=== PATIENT | female | born 1950 | race Caucasian/White ===

== ENCOUNTER 2017-08-05 17:01 | Observation (INO) | payer MEDICARE, MEDICAID ==
[2017-08-05] MEDS ORDERED: Ondansetron HCl/PF 4 MG/2 ML Vial ONE ×2 (17:23→18:10)
[2017-08-05 17:36] LABS: #Eosinphils 0.2 thou/uL (0.0-0.7); #Lymphocytes 2.2 thou/uL (1.20-3.40); #Monocytes 0.6 thou/uL (0.11-0.59); #Neutrophils 6.8 thou/uL (1.40-6.50); %Basophils 0.4 % (0.0-1.0); %Eosinophils 2.4 % (0.0-10.0); Hematocrit 36.1 % (36.0-47.0); Mean Platelet Volume 6.1 fL (7.4-10.4); Red Blood Cell (RBC) Count 3.69 mill/uL (4.20-5.40); White Blood Cell (WBC) Count 9.8 thou/uL (4.8-10.8)
[2017-08-05 17:41] LABS: Prothrombin Time 12.9 SEC (12.0-14.7)
[2017-08-05 17:50] LABS: Modified Allen's Test POSITIVE; Oxyhemoglobin 92.8 % (94.0-97.0); Sodium 138 mmol/L (135-148); Vent NO
[2017-08-05 17:51] LABS: Mode NC 2 LPM
[2017-08-05 17:52] LABS: Lactic Acid - Sepsis 3.2 mmol/L (0.5-2.2)
[2017-08-05 17:59] LABS: ALT (SGPT) 55 U/L (8-55); AST (SGOT) 77 U/L (5-34); Alkaline Phosphatase 78 U/L (40-150); Anion Gap 14 mmol/L (10-20); BUN (Urea Nitrogen) 12 mg/dL (9.8-20.1); Bilirubin, Total 0.2 mg/dL (0.2-1.2); CK (CPK) 166 U/L (29-168); Calc. Creatinine Clearance 0 mL/min (70-130); Calcium 11.5 mg/dL (7.8-10.44); Carbon Dioxide 22 mmol/L (23-31); Chloride 104 mmol/L (98-107); Estimated GFR-MDRD 61; Globulin 2.8 g/dL (2.4-3.5); Protein, Total 7.1 g/dL (6.0-8.3)
[2017-08-05 18:00] LABS: Troponin I Less than 0.010 ng/mL (< 0.028)
[2017-08-05] MEDS ORDERED: Midazolam HCl 2 mg/2 ml Vial ONE (18:29)
[2017-08-05] MEDS ORDERED: Lidocaine 1% PF 5 ML VIAL ONE (18:29)
[2017-08-05] MEDS ORDERED: Lidocaine Viscous Sol 2% 15 ml UD Cup ONE (18:29)
[2017-08-05] MEDS ORDERED: Benzocaine 20% Spray 60 ML CAN ONE (18:49)
[2017-08-05] MEDS ORDERED: Senokot 8.6 MG TAB PO PRN (18:54)
[2017-08-05] MEDS ORDERED: Bisacodyl 5 MG TAB PO PRN (18:54)
[2017-08-05] MEDS ORDERED: Ondansetron HCl/PF 4 MG/2 ML Vial IVP PRN (18:54)
[2017-08-05] MEDS ORDERED: Dextrose 50% Abboject 50 ML SYRINGE SLOW IVP PRN (18:56)
[2017-08-05] MEDS ORDERED: Dextrose 5% in Water 1,000 ML IV PRN (18:56)
[2017-08-05] MEDS ORDERED: methylPREDNISolone Sod Succ/PF 125 MG/2 ML VIAL IVP SCH (19:19)
--- NOTE | 2017-08-05 19:43 | RAD ---
CHEST ONE VIEW 08/05/17 HISTORY: Foreign body in airway. Dyspnea. COMPARISON: 05/31/17. FINDINGS: Cardiac silhouette is magnified and upper limits of normal in size. Pulmonary vasculature is upper li mits of normal. Patchy bibasilar infiltrates are now present. There is slight rightward rotation of t he patient. No lobar consolidation or pneumothorax are apparent. No radiopaque foreign bodies are evident over the airway. Postoperative changes of the cervical spine and lumbar spine are partially visualized. IMPRESSION: Bibasilar atelectasis. No active cardiopulmonary abnormalities are otherwise demonstrated. POS: [facility]
[2017-08-05 19:54] LABS: Lactic Acid - Sepsis 3.3 mmol/L (0.5-2.2)
[2017-08-05 20:51] VITALS: BMI 36.1
[2017-08-05] MEDS: Nicotine 21 MG PATCH TD SCH (22:22)
[2017-08-05] MEDS: Acetaminophen 325 MG TAB PO PRN (22:23)
--- NOTE | 2017-08-06 00:26 | OP ---
DATE OF PROCEDURE: 08/05/2017 PROCEDURE: Bronchoscopy. PREOPERATIVE DIAGNOSIS: Possible aspiration of food contents. POSTOPERATIVE DIAGNOSIS: Clear airways. No evident indication of aspiration of food contents. ANESTHESIA: 1% lidocaine without epinephrine to vocal cords, Hurricaine spray to the back of the thr oat, viscous lidocaine to the nares. She also received conscious sedation with total 2 mg of Versed IV. Informed consent was obtained from the patient. She was explained the risks of the procedure includi ng, but not limited to bleeding, infection, accidental lung puncture. She also understood that she w as undergoing conscious sedation during this procedure. DESCRIPTION OF PROCEDURE: The procedure was performed in the emergency room under cardiopulmonary mo nitoring. Nurses at the bedside. The patient was on a tidal CO2 monitor and was receiving high-flow oxygen via nasal cannula. The Pentax bronchoscope was placed in the patient's mouth through a bite block. The vocal cords were identified and adducted normally. The scope was used to survey the trac hea, right mainstem bronchus, right upper lobe, right middle lobe, right lower lobe, left mainstem br onchus, left upper lobe, and left lower lobe. There was no evidence of any food aspiration. There w ere some thick mucoid secretions present in both lower lobes. These were aspirated after being lavag ed with normal saline. She tolerated the procedure well.
--- NOTE | 2017-08-06 01:06 | CON ---
DATE OF CONSULTATION: 08/05/2017 CONSULTING PHYSICIAN: Dr. Simons from the [facility]. REASON FOR CONSULTATION: Possible aspiration of food contents. HISTORY OF PRESENT ILLNESS: This is a 67-year-old female who was eating brisket earlier today. She choked, she had a Heimlich maneuver performed without successful dislodgement of the foreign body. S he presented to the ER in respiratory distress. Forceps were used to remove a large piece of brisket measuring about 4 cm x 3 cm from the posterior pharynx. I was asked to see the patient to rule out aspiration in the trachea. At the time I arrived, she was awake, alert, and able to give history. D oes not appear to be in any respiratory distress but was using supplemental oxygen. PAST MEDICAL HISTORY: Hypertension, diabetes mellitus type 2, anxiety, gastroesophageal reflux, hype rlipidemia. PAST SURGICAL HISTORY: Back surgery, left knee surgery, cholecystectomy, hysterectomy, and thyroidec raciel. ALLERGIES: None. MEDICATIONS PRIOR TO ADMISSION: Tramadol, metformin, simvastatin, Protonix, Theragran, melatonin, li sinopril, Levemir insulin, gabapentin, vitamin D2, duloxetine, vitamin B12, aspirin, amitriptyline. SOCIAL HISTORY: The patient smokes some formerly heavier in the past. Does not consume alcohol. FAMILY MEDICAL HISTORY: Unremarkable. REVIEW OF SYSTEMS: Otherwise, negative. PHYSICAL EXAMINATION: VITAL SIGNS: O2 saturation is 96% on 2 liters, pulse 80, blood pressure 140/70. GENERAL: She is awake, alert, and conversant. HEENT: Pupils react. Sclerae are anicteric. Oropharynx is clear. NECK: Without adenopathy or JVD. LUNGS: She has some coarse expiratory wheezing. CARDIAC: S1, S2 regular. ABDOMEN: Soft, nontender. EXTREMITIES: No clubbing, cyanosis, or edema. LABORATORY DATA: Sodium 136, potassium 4, chloride 104, CO2 22, BUN 12, creatinine 0.9, glucose 240. Lactate was 3.2. White blood cell count 9.8, hematocrit 36.1, platelet count 322. ABG: Initially , pH 7.29, pCO2 of 48, pO2 of 76. Chest x-ray showed some atelectasis. ASSESSMENT: 1. Possible aspiration - bronchoscopy has been performed and this has been ruled out. 2. Hypoxemia. 3. Probably underlying chronic obstructive pulmonary disease. PLAN: She probably should be observed for the next 12 hours until her hypoxemia resolves. I will be happy to follow with you.
--- NOTE | 2017-08-06 01:43 | HP ---
CHIEF COMPLAINT: Choking with shortness of breath. HISTORY OF PRESENT ILLNESS: This is a 67-year-old female with a past medical history significant for hypertension, hyperlipidemia as well as diabetes, who presents to the hospital after choking on a pi dee dee of steak earlier today. The patient was enjoying the meal when she suddenly began choked on a pi dee dee of steak. Apparently, her airways were obstructive for approximately 15 minutes. The steak was eventually removed with the Sandeep forceps. During that time, she was found to be cyanotic with oxyg en saturations around 65%-66% on room air. After removal with the forceps, the patient's oxygen satu rations improved significantly to the mid 90s while on O2 as well. She became more alert and is resp onding to commands, and engaging in conversation. Due to this steak, ER was still concerned that the re was possibly some particles left over, so Pulmonology was consulted for possible bronchoscopy. Th e patient currently denies any shortness of breath, cough, fevers, chills, chest pain, or neck swelli ng. PAST MEDICAL HISTORY: See HPI. SOCIAL HISTORY: Smokes a few cigarettes a day. Denies any recreational drug use or alcoholic use, s tates she is FULL CODE. She states that her [id number] was the surrogate decision maker. FAMILY HISTORY: Positive for diabetes. PAST SURGICAL HISTORY: Includes multiple back surgeries, cholecystectomy, hysterectomy as well as th yroidectomy. REVIEW OF SYSTEMS: A 14-point review of systems were reviewed and were negative other than what was mentioned in the HPI. HOME MEDICATIONS: Still trying to be retrieved at this time. PHYSICAL EXAMINATION: VITAL SIGNS: Blood pressure was 117/68, pulse was 83, respiratory rate was 20, temperature was 98, a nd patient was satting 95% oxygen on 2 liters nasal cannula. GENERAL: Patient was in no apparent distress, resting comfortably in the bed, alert, awake, and orie nted x3. HEENT: Head: Normocephalic, atraumatic. Eyes: Pupils are round and reactive to light. Extraocula r muscles were intact. Conjunctivae was pink. Sclerae was nonicteric. Mouth: Oral mucosa pink and moist. No erythema was noted. Patient's lips were no longer cyanotic from what was on admission pr eviously. NECK: Soft and supple. No JVD, carotid bruits, or lymphadenopathy. CARDIOVASCULAR: Regular rate and rhythm. S1, S2 sounds were heard. RESPIRATORY: Clear lungs bilaterally. No added sounds. ABDOMEN: Bowel sounds, soft, nontender, nondistended. EXTREMITIES: Pulses were 2+ both dorsalis and radial pulse. No pitting edema could be appreciated. NEUROLOGIC: Cranial nerves II through XII are grossly intact. Patient is moving all 4 extremities v miguel well. LABORATORY DATA: White blood cell count was 9.8, hemoglobin of 12.2, hematocrit was 36.1, platelet c ount was 322. Sodium was 136, potassium 4.0, chloride was 104, bicarbonate was 22, BUN was 12, creat inine was 0.92, glucose was 240. Lactic acid was 3.2. Blood gas showed a pH of 7.29, pCO2 of 48, pO 2 of 76.7. Chest x-ray showed atelectasis otherwise, no other findings could be appreciated. ASSESSMENT AND PLAN: 1. Acute hypoxic and hypercapnic respiratory failure secondary to choking on a food particle. 2. Lactic acidosis secondary to likely hypercapnic respiratory failure. 3. Hypertension. 4. Hyperlipidemia. 5. Diabetes. PLAN: The patient is currently hemodynamically stable. As stated up above, Pulmonology is to see th e patient today. The patient may likely undergo a bronchoscopy pending evaluation of the patient at this time. She is doing significantly better. Satting well on 2 liters nasal cannula. We will cont inue to monitor the patient closely for any residual effects. We will recheck lactic acid, but I do anticipate this improving as the patient is satting significantly better than when she initially came in. We will resume home medication at the medicine reconciliation. Sliding scale insulin protocol. Diabetes appears to be uncontrolled at this time. We will also career guidance counselor the patient on tobacco cess ation. We will monitor accordingly.
[2017-08-06] MEDS: Acetaminophen 325 MG TAB PO PRN ×3 (02:46→14:42)
[2017-08-06 06:13] LABS: #Lymphocytes 1.2 thou/uL (1.20-3.40); #Monocytes 0.2 thou/uL (0.11-0.59); #Neutrophils 8.3 thou/uL (1.40-6.50); %Basophils 0.1 % (0.0-1.0); %Eosinophils 0.3 % (0.0-10.0); %Lymphocytes 12.7 % (21.0-51.0); %Monocytes 1.7 % (0.0-10.0); Hematocrit 32.7 % (36.0-47.0); Mean Platelet Volume 6.8 fL (7.4-10.4); Red Blood Cell (RBC) Count 3.32 mill/uL (4.20-5.40); White Blood Cell (WBC) Count 9.7 thou/uL (4.8-10.8)
[2017-08-06 06:34] LABS: Anion Gap 12 mmol/L (10-20); BUN (Urea Nitrogen) 12 mg/dL (9.8-20.1); Calc. Creatinine Clearance 74 mL/min (70-130); Calcium 10.5 mg/dL (7.8-10.44); Carbon Dioxide 22 mmol/L (23-31); Chloride 104 mmol/L (98-107); Estimated GFR-MDRD 63
[2017-08-06] MEDS: Insulin Regular 300 UNITS/3 ML VIAL SC PRN ×3 (06:47→16:38)
[2017-08-06] MEDS: Enoxaparin Sodium 40 MG/0.4 ML SYRINGE SC SCH (08:18)
[2017-08-06] MEDS ORDERED: FLU VACC TS2017-18 (>65YR) 0.5 ML SYRINGE IM ONE (09:00)
--- NOTE | 2017-08-06 12:39 | PDOC.PN ---
- Subjective Encounter Start Date: 08/06/17 Encounter Start Time: 09:00 Pt sen for lactic acidosis. says she feels better. No nausea, vomiting or diarrhea. - Objective MAR Reviewed: Yes Vital Signs & Weight: Vital Signs (12 hours) Temp Pulse Resp BP Pulse Ox 08/06/17 11:20 98.4 F 92 18 115/77 97 08/06/17 10:37 82 16 96 08/06/17 08:21 98.5 F 85 16 08/06/17 07:46 98.5 F 85 16 136/68 98 08/06/17 06:47 82 16 94 L 08/06/17 05:30 98.3 F 87 18 170/81 H 95 Weight Weight 167 lb 4.8 oz I&O: 08/05/17 08/06/17 08/07/17 06:59 06:59 06:59 Intake Total 540 Output Total 1400 Balance -860 Result Diagrams: 08/06/17 05:27 08/06/17 05:27 Additional Labs: Accuchecks 08/06/17 08/05/17 10:46 22:04 POC Glucose 323 H 210 H EKG Reviewed by me: Yes (Tele: NSR) Phys Exam - Physical Examination Constitutional: NAD HEENT: PERRLA, moist MMs, sclera anicteric, oral pharynx no lesions Neck: no nodes, no JVD, supple, full ROM Respiratory: no wheezing, no rales, no rhonchi, clear to auscultation bilateral Cardiovascular: RRR, no rub Gastrointestinal: soft, non-tender, no distention, positive bowel sounds Musculoskeletal: pulses present Neurological: moves all 4 limbs Lymphatic: no nodes Psychiatric: normal affect, A&O x 3 Skin: no rash, normal turgor, cap refill <2 seconds Dx/Plan (1) Lactic acidosis Code(s): E87.2 - ACIDOSIS Status: Acute (2) Choking episode Code(s): R09.89 - OTH SYMPTOMS AND SIGNS INVOLVING THE CIRC AND RESP SYSTEMS Status: Acute (3) HTN (hypertension) Code(s): I10 - ESSENTIAL (PRIMARY) HYPERTENSION Status: Chronic (4) Dyslipidemia Code(s): E78.5 - HYPERLIPIDEMIA, UNSPECIFIED Status: Chronic (5) DM2 (diabetes mellitus, type 2) Status: Chronic - Plan plan discussed w/ family * . Etiology of lactic acidosis unclear. ? due to hypoxia during aspiration, ? due to metformin use, ? other causes. Provide IV hydration, hold metformin, repeat lactic acid level. Discussed with pt and daughter, updated them. Monitor vital signs, titrate antihypertensives as needed. Continue statin. Review of Systems - Review of Systems Constitutional: Other. negative: Fever, Chills, Sweats, Weakness, Malaise Respiratory: negative: Cough, Dry, Shortness of Breath, Hemoptysis, SOB with Excertion, Pleuritic Pain, Sputum, Wheezing Cardiovascular: negative: Chest Pain, Palpitations, Orthopnea, Paroxysmal Noc. Dyspnea, Edema, Light Headedness Gastrointestinal: negative: Nausea, Vomiting, Abdominal Pain, Diarrhea, Constipation, Melena, Hematochezia Genitourinary: negative: Dysuria, Frequency, Incontinence, Hematuria, Retention - Medications/Allergies Allergies/Adverse Reactions: Allergies Allergy/AdvReac Type Severity Reaction Status Date / Time No Allergy Information Allergy Verified 06/01/17 00:14 Available Medications: Current Medications Acetaminophen (Tylenol) 650 mg PO Q4H PRN PRN Reason: Headache/Fever or Pain Last Admin: 08/06/17 08:18 Dose: 650 mg Albuterol/Ipratropium (Duoneb) 3 ml NEB [id number] [facility] Last Admin: 08/06/17 10:37 Dose: 3 ml Amitriptyline HCl (Elavil) 150 mg PO HS [facility]I Aspirin (Ecotrin) 81 mg PO DAILY [facility] Atorvastatin Calcium (Lipitor) 20 mg PO HS KARI Bisacodyl (Dulcolax) 10 mg PO DAILYPRN PRN PRN Reason: Constipation Dextrose/Water (Dextrose 50%) 25 gm SLOW IVP PRN PRN PRN Reason: Hypoglycemia Enoxaparin Sodium (Lovenox) 40 mg SC 0900 [facility] Last Admin: 08/06/17 08:18 Dose: 40 mg Fish Oil (Fish Oil) 1,000 mg PO DAILY [facility] Gabapentin (Neurontin) 400 mg PO BID [facility] Glucagon (Glucagon) 1 mg IM PRN PRN PRN Reason: Hypoglycemia Dextrose/Water (D5w) 1,000 mls @ 0 mls/hr IV .Q0M PRN; As Directed PRN Reason: Hypoglycemia Insulin Human Regular (Humulin R) 0 units SC .MODERATE SLIDING SC PRN PRN Reason: Moderate Correctional Scale Last Admin: 08/06/17 11:26 Dose: 8 unit Lisinopril (Zestril) 5 mg PO DAILY [facility] Multivitamins (Theragran) 1 tab PO DAILY [facility] Nicotine (Nicoderm Patch) 21 mg TD Q24HR [facility] Last Admin: 08/05/17 22:22 Dose: Not Given Ondansetron HCl (Zofran) 4 mg IVP Q6H PRN PRN Reason: Nausea/Vomiting Senna (Senokot) 2 tab PO HSPRN PRN PRN Reason: Constipation Sodium Chloride (Flush - Normal Saline) 10 ml IVF Q12HR [facility] Sodium Chloride (Flush - Normal Saline) 10 ml IVF PRN PRN PRN Reason: Saline Flush Tramadol HCl (Ultram) 50 mg PO 2000 [facility]
[2017-08-06] MEDS: Sodium Chloride 0.9% 1,000 ML IV SCH ×2 (13:03→22:15)
--- NOTE | 2017-08-06 14:14 | PRG ---
DATE OF SERVICE: 08/06/2017 SUBJECTIVE: Ms. Reyna is doing better. She wants to go home. PHYSICAL EXAMINATION: VITAL SIGNS: Temperature the 98.4, pulse 92, respiration 18, O2 sat 97%, blood pressure 115/77. HEENT: Unremarkable. NECK: No JVD. LUNGS: No wheezing. CARDIAC: S1 and S2 regular. ABDOMEN: Soft. EXTREMITIES: No edema. ASSESSMENT: Status post choking episode -- clear airways by bronchoscopy. RECOMMENDATIONS: Aside from an elevated lactate level, she looks like she is back to normal. It is also noted, she has a mildly elevated calcium level. She will need further workup for hypercalcemia as an outpatient. She likely can go home when her lactic acid level returns back to normal. No furt her recommendations at this time.
[2017-08-06 15:31] LABS: Lactic Acid - Sepsis 6.6 mmol/L (0.5-2.2)
[2017-08-06] MEDS ORDERED: traMADol HCl 50 MG TAB PO PRN (16:42)
[2017-08-06] MEDS ORDERED: metFORMIN 500 MG TAB PO SCH (17:00)
[2017-08-06] MEDS: HumaLOG 300 UNITS/3 ML VIAL SC SCH (17:29)
[2017-08-06 19:18] LABS: Lactic Acid - Sepsis 3.6 mmol/L (0.5-2.2)
[2017-08-06] MEDS ORDERED: traMADol HCl 50 MG TAB PO SCH (20:00)
[2017-08-06] MEDS ORDERED: Melatonin 3 MG TAB PO SCH (21:00)
[2017-08-06] MEDS ORDERED: Atorvastatin Calcium 20 MG TAB PO SCH (21:00)
[2017-08-06] MEDS: Gabapentin 400 MG CAP PO SCH (21:18)
[2017-08-06] MEDS: Insulin Detemir 100 UNITS/ML 60 UNITS in Pre-Filled Syringe 1 EACH SC SCH (21:18)
[2017-08-06] MEDS: Nicotine 21 MG PATCH TD SCH (21:22)
[2017-08-07] MEDS ORDERED: Aspirin 81 mg Enteric Coated Tablet PO SCH (09:00)
[2017-08-07] MEDS ORDERED: Multivit, Therapeutic 1 TAB PO SCH (09:00)
[2017-08-07] MEDS ORDERED: Cyanocobalamin (Vitamin B-12) 1,000 MCG TAB PO SCH (09:00)
[2017-08-07] MEDS ORDERED: Fish Oil 1,000 MG CAP PO SCH (09:00)
[2017-08-07] MEDS ORDERED: Lisinopril 5 MG TAB PO SCH (09:00)
[2017-08-07] MEDS: Acetaminophen 325 MG TAB PO PRN (09:11)
--- NOTE | 2017-08-07 09:26 | DIS ---
PRIMARY CARE PHYSICIAN: Dr. Sintia Espinosa DISCHARGE DIAGNOSES: 1. Choking on food. 2. Lactic acidosis. CONDITION OF PATIENT AT THE TIME OF DISCHARGE: Stable. I assessed Ms. Reyna on the day of discharge. She denies any chest pain or shortness of breath. She denies any fevers or chills. Vital signs are stable. S1 and S2 are heard, regular. Lungs are c lear to auscultation bilaterally. DISCHARGE MEDICATIONS: She has been advised to stop metformin. Her discharge medications include am itriptyline 150 mg at bedtime, aspirin 81 mg daily, vitamin B12 1000 mcg daily, duloxetine 30 mg jean carlos y, vitamin D2 2000 units daily, fish oil 1000 mg daily, gabapentin 400 mg 2 times a day, NovoLog insu aj 20 units 3 times daily, Levemir insulin 60 units 2 times a day, lisinopril 5 mg daily, melatonin 9 mg at bedtime, multivitamins 1 tablet daily, Protonix 40 mg daily, simvastatin 40 mg every evening and tramadol 50 mg 4 times a day as needed. CONSULTATIONS DURING THIS HOSPITALIZATION: Pulmonary/Critical Care Medicine, Dr. Kyrie Leigh. HOSPITAL COURSE: Ms. Reyna is a pleasant 67-year-old lady, who was admitted to [facility] on observation status on 08/05/2017 following aspiration while eating brisket. She h ad Heimlich maneuver performed without successful dislodgement of the foreign body. In the emergency room, forceps were used to remove a large piece of brisket from the posterior pharynx. She was repo rtedly hypoxic and also cyanotic. She continued to improve following removal of the foreign body. However, the next day, her lactic ac id increased. At the time of admission, she had a lactic acid level of 3.2. It increased to 6.6. M etformin was stopped because of its potential to cause lactic acidosis. She received intravenous flu ids. Lactic acid came down to the normal, 2.2 on the day of discharge. She is advised to stop metfo rmin. She will likely need titration of her insulin as an outpatient. DISCHARGE DESTINATION: Home.
[2017-08-07] MEDS: Insulin Regular 300 UNITS/3 ML VIAL SC PRN (09:37)
[2017-08-07] MEDS: HumaLOG 300 UNITS/3 ML VIAL SC SCH ×2 (09:38→12:13)
[2017-08-07] MEDS: Insulin Detemir 100 UNITS/ML 60 UNITS in Pre-Filled Syringe 1 EACH SC SCH (09:38)
[2017-08-07] MEDS: Enoxaparin Sodium 40 MG/0.4 ML SYRINGE SC SCH (09:39)
[2017-08-07] MEDS: Gabapentin 400 MG CAP PO SCH (09:39)
[2017-08-07] MEDS: Sodium Chloride 0.9% 1,000 ML IV SCH (09:40)
--- NOTE | 2017-08-07 11:50 | PRG ---
DATE OF SERVICE: 08/07/2017 SUBJECTIVE: The patient is hypoxemic, morning with room air O2 sat approximately 87%. She is in no respiratory distress. OBJECTIVE: HEENT: Unremarkable. NECK: No JVD. CHEST: Clear. CARDIAC: S1 and S2 regular. ABDOMEN: Soft. EXTREMITIES: No edema. ASSESSMENT: 1. Status post choking episode. 2. Underlying chronic obstructive pulmonary disease. RECOMMENDATIONS: 1. Home O2 at 2 liters nasal cannula. 2. Avoid smoking. 3. Nebulization treatments as needed. 4. Should be okay to go home.
[2017-08-07 12:06] VITALS: BP 125/59; TEMP 98.5
== END 2017-08-07 13:22 | disposition home or self-care (01) ==
LOC: ERS 17:01 → 2SW 19:26
PROVIDERS: ADMIT Internal Medicine; ATTEND Internal Medicine
PROC: 0B9J8ZX Drainage of Left Lower Lung Lobe, Via Natural or Artificial Opening Endoscopic, Diagnostic (ICD-10-PCS; principal; 2017-08-05)
PROC: 0B9F8ZX Drainage of Right Lower Lung Lobe, Via Natural or Artificial Opening Endoscopic, Diagnostic (ICD-10-PCS; 2017-08-05)
DX: T17.228A Food in pharynx causing other injury, initial encounter (principal); E87.2 Acidosis; E78.5 Hyperlipidemia, unspecified; I10 Essential (primary) hypertension; E11.9 Type 2 diabetes mellitus without complications; J44.9 Chronic obstructive pulmonary disease, unspecified; F17.210 Nicotine dependence, cigarettes, uncomplicated; Z90.49 Acquired absence of other specified parts of digestive tract; Z98.890 Other specified postprocedural states
CPT/HCPCS: 31624; 71010; 80048; 80053; 82550; 82553; 82805; 82962 ×3; 83605 ×3; 83880; 84484; 85025 ×2; 85610; 93005; 94640 ×3; 94760; 96361 ×3; 96372 ×2; 96374; 96375; 96376; 99285; G0378; 36415; 36416; 90471; 90682; A4216; G0008; J1650; J1815; J2001; J2250; J2405; J2930; J7620; Q2036

== ENCOUNTER 2017-08-30 12:56 | Outpatient (CLI) | payer MEDICARE, MEDICAID ==
--- NOTE | 2017-08-30 16:35 | RAD ---
TWO VIEW CHEST: 08/30/17 HISTORY: Dyspnea. Lung oropeza appear clear of infiltrate. Heart and mediastinum unremarkable. Mild interstitial promine nce appears chronic. Stranding in the posterior lungs seen on lateral view. Mild wedging of what appe ars to be T12 vertebrae. IMPRESSION: Chronic findings as described. No acute lung process. POS: [facility]
== END 2017-08-30 12:57 | disposition home or self-care (01) ==
LOC: RAD 12:56
PROVIDERS: ATTEND Internal Medicine Critical Care Medicine
DX: R06.00 Dyspnea, unspecified (principal)
CPT/HCPCS: 71020

== ENCOUNTER 2017-10-17 13:16 | Outpatient (CLI) | payer MEDICARE, MEDICAID ==
--- NOTE | 2017-10-19 11:12 | PFT ---
PATIENT HISTORY: HEIGHT: 58 IN WEIGHT:160 SMOKER: YES HOW LON YRS PACKS PER DAY 1 PRODUCTIVE COUGH: YES LUNG DISEASE: PHYSICIAN INTERPRETATION FINAL REPORT: Health Technical Writer comments: patient has poor effort and cooperation. There they were unable to complete lung volumes. The patient was creating a leak by not having a good seal around the mouth piece. FVC 1.68 (79%), FEV1 1.28 (86%), FEV1/FVC 0.76. There is a minimal reduction to FVC. The FEV1 falls within the normal limits. There is a significant improvement following administration of bronchodilator, but this is an effect of improved expiratory time from 3 seconds to 7 seconds. I don't believe this is a true positive bronchodilator effect. The flow volume loops do not have any suggestion of obstructive airflow limitation. Lung volumes and diffusion capacity did not generate any data worth to interpreting. IMPRESSION: Overall, these pulmonary function studies are suggestive of a mild restrictive process. RADIOGRAPHIC and clinical correlation should be considered. There are no prior studies for comparison. Health Technical Writer: SOLITARIO Hand Drawer In: [employer]
== END 2017-10-17 13:17 | disposition home or self-care (01) ==
LOC: CP 13:16
PROVIDERS: ATTEND Internal Medicine Critical Care Medicine
DX: J44.9 Chronic obstructive pulmonary disease, unspecified (principal)
CPT/HCPCS: 94060; 94727; 94729

== ENCOUNTER 2018-02-23 11:25 | Observation (INO) | payer MEDICARE, MEDICAID ==
--- NOTE | 2018-02-23 13:11 | RAD ---
SUPINE ABDOMEN: Date: 02/23/18 HISTORY: Constipation. Abdominal pain. FINDINGS: Scattered stool and gas seen in the colon. Small bowel gas pattern is nonspecific with scattered smal l bowel gas. No evidence of small bowel dilatation. No soft tissue mass effect. Postoperative spine c hanges. Post cholecystectomy clips. IMPRESSION: Nonspecific bowel gas pattern. ' POS: [facility]
[2018-02-23] MEDS ORDERED: GoLYTELY 4,000 ml Bottle PO SCH (13:15)
[2018-02-23] MEDS ORDERED: Bisacodyl 10 MG SUPP ONE (13:15)
[2018-02-23 13:16] LABS: #Eosinphils 0.4 thou/uL (0.0-0.7); #Lymphocytes 2.6 thou/uL (1.20-3.40); #Monocytes 0.6 thou/uL (0.11-0.59); #Neutrophils 4.7 thou/uL (1.40-6.50); %Basophils 0.4 % (0.0-1.0); %Eosinophils 4.4 % (0.0-10.0); %Lymphocytes 31.6 % (21.0-51.0); %Monocytes 6.7 % (0.0-10.0); %Neutrophils 56.9 % (42.0-75.0); Hemoglobin 13.4 g/dL (12.0-16.0); Mean Corpuscular HGB CONC 33.8 g/dL (32.0-36.0); Mean Corpuscular Hemoglobin 32.2 pg (27.0-31.0); Mean Corpuscular Volume 95.3 fl (81.0-99.0); Platelet Count 266 thou/uL (130-400); RBC Distribution Width 11.8 % (11.5-14.5); Red Blood Cell (RBC) Count 4.18 mill/uL (4.20-5.40); White Blood Cell (WBC) Count 8.2 thou/uL (4.8-10.8)
[2018-02-23 13:40] LABS: ALT (SGPT) 61 U/L (8-55); AST (SGOT) 48 U/L (5-34); Albumin 4.4 g/dL (3.4-4.8); Alkaline Phosphatase 123 U/L (40-150); Anion Gap 8 mmol/L (10-20); BUN (Urea Nitrogen) 16 mg/dL (9.8-20.1); Bilirubin, Total 0.2 mg/dL (0.2-1.2); Calc. Creatinine Clearance 0 mL/min (70-130); Carbon Dioxide 29 mmol/L (23-31); Chloride 106 mmol/L (98-107); Estimated GFR-MDRD 61; Globulin 2.9 g/dL (2.4-3.5); Glucose 121 mg/dL (80-115); Potassium 4.3 mmol/L (3.5-5.1); Protein, Total 7.3 g/dL (6.0-8.3); Sodium 139 mmol/L (136-145)
[2018-02-23 13:47] LABS: Calcium 12.1 mg/dL (7.8-10.44)
[2018-02-23 13:58] LABS: Free T4 (Free Thyroxine) 0.87 ng/dL (0.70-1.48); Thyroid Stimulating Hormone 1.0366 uIU/mL (0.35-4.94)
[2018-02-23 14:36] LABS: Bilirubin Negative (Negative); Blood, Urine Negative (Negative); Clarity CLEAR (Clear); Glucose, Urine (Dipstick) Negative (Negative); Leukocyte Negative (Negative); Nitrite Negative (Negative); Protein, Urine (Dipstick) Negative (Neg-Trace); Specific Gravity, Urine 1.008 (1.002-1.036); Urobilinogen 0.2 mg/dL (0.2-1.0); pH, Urine 7.5 (5.0-9.0)
[2018-02-23] MEDS ORDERED: Acetaminophen 325 MG TAB PO PRN (16:49)
[2018-02-23] MEDS ORDERED: traMADol HCl 50 MG TAB PO PRN ×2 (18:56→20:21)
[2018-02-23] MEDS ORDERED: Dextrose 5% in Water 1,000 ML IV PRN (18:57)
[2018-02-23] MEDS ORDERED: Dextrose 50% Abboject 50 ML SYRINGE SLOW IVP PRN (18:57)
[2018-02-23] MEDS ORDERED: HumaLOG 300 UNITS/3 ML VIAL SC PRN (18:57)
[2018-02-23 19:18] VITALS: BMI 32.6
[2018-02-23] MEDS: Sodium Chloride 0.9% 1,000 ML IV SCH (19:27)
[2018-02-23] MEDS ORDERED: Nicotine 7 MG PATCH TD SCH (20:00)
[2018-02-23] MEDS ORDERED: guaiFENesin/DM ER PO PRN (20:18)
[2018-02-23] MEDS ORDERED: Cipro 250 MG TAB PO SCH (20:30)
[2018-02-23] MEDS: Gabapentin 400 MG CAP PO SCH (20:58)
[2018-02-23] MEDS: Famotidine 20 MG TAB PO SCH (20:58)
[2018-02-23] MEDS ORDERED: Melatonin 3 MG TAB PO SCH (21:00)
[2018-02-23] MEDS ORDERED: Amitriptyline HCl 100 MG TAB PO SCH (21:00)
[2018-02-23] MEDS ORDERED: Simvastatin 40 MG TAB PO SCH (21:00)
[2018-02-23] MEDS ORDERED: Insulin Glargine 60 UNITS in Pre-Filled Syringe 1 EACH SC SCH (21:00)
[2018-02-23] MEDS ORDERED: INSULIN DETEMIR SQ SCH (21:00)
[2018-02-23] MEDS ORDERED: Docusate 100 MG CAP PO SCH (21:00)
[2018-02-23] MEDS ORDERED: Insulin Glargine 25 UNITS in Pre-Filled Syringe 1 EACH SC SCH (21:00)
[2018-02-24] MEDS: Sodium Chloride 0.9% 1,000 ML IV SCH ×2 (02:14→09:15)
--- NOTE | 2018-02-24 02:22 | HP ---
PRIMARY CARE PHYSICIAN: Sintia Espinosa MD CHIEF COMPLAINT: Abdominal pain/constipation. HISTORY OF PRESENT ILLNESS: The patient is a very pleasant 67-year-old female who [facility] complaints of [facility]. The patient states that for the past couple of months, she has been having frequent constipation and has been going to [facility] multiple times for briani pation. The patient stated that normally her normal bowel movements are every 2 days; however, her l ast normal bowel movement was about 2 months ago. The patient denies any starting of any new medicat ions. She does take pain medication; however, according to her, she takes only tramadol 100 mg at [facility] for lower extremity pain and for restless leg syndrome. Patient then states that she lives in an assisted living and has been trying multiple medication over the counter and also called her PCP t o give a prescription for her constipation. However, during this admission, she has not had a bowel movement for about 2 weeks. The patient did undergo an abdominal x-ray, indicated scattered stool an d gas seen in the colon, nonspecific bowel pattern or no obstruction was noted. At this time, the barby wasserman was given GoLYTELY in the ER and she had multiple bowel movements and currently states she feel s much better. She denies any nausea, vomiting, any fevers, chills, any chest pain, shortness of delores ath. She does have some mild abdominal pain to her right lower quadrant. The patient also states th at she has been falling a lot frequently. She feels that her legs have been feeling like "jello." T he patient also has been complaining of generalized fatigue and she states that she has been trying t o eat more healthy; however, she does not know if she has lost any weight or not. PAST MEDICAL HISTORY: Hypertension, hyperlipidemia as well as diabetes and underlying depression or psychiatric illnesses. PAST SURGICAL HISTORY: She has had multiple back surgeries. She has had a cholecystectomy, hysterec raciel. She has also had a partial thyroidectomy and a parathyroidectomy according to her at [facility]. SOCIAL HISTORY: She smokes half a pack a day. Denies any alcohol or drug use. [facility] FAMILY HISTORY: Positive for diabetes. REVIEW OF SYSTEMS: All negative except for the ones mentioned above in the HPI. HOME MEDICATIONS: We are trying to get her accurate home medications from her assisted living. PHYSICAL EXAMINATION: VITAL SIGNS: Temperature of 98.5, 87, respirations 16, 93% on room air, 125/59. GENERAL: She is awake, alert, oriented x3, does not appear in distress. HEENT: She appears to be fairy. Mucous membranes are dry. Appears to be dehydrated. CARDIOVASCULAR: S1, S2 present. No murmurs, rubs, or gallops. LUNGS: Clear to auscultation, rhonchi, or wheezes noted. ABDOMEN: Soft, bowel sounds present x2. She has got some mild tenderness upon palpation of her righ t lower quadrant. EXTREMITIES: She has got a few cuts and bruises on her skin; however, no focal neurological deficits noted. LABORATORY DATA: As the following: WBC of 8.2, hemoglobin of 13.4, hematocrit of 39.8, platelets of 266,000. Chemistry: Sodium of 139, potassium of 4.3, carbon dioxide of 29, BUN of 16, creatinine o f 0.92. Her calcium level is 12.1. AST is 48, ALT is 61. TSH is normal at 1.159 and her PTH intact is 131.6. ASSESSMENT AND PLAN: The patient is a very pleasant 67-year-old female who presents to the hospital for constipation. 1. Constipation, which currently has been resolved. Etiologies for constipation could be secondary to hypercalcemia. The patient denies taking of any oral supplements of calcium. Also, her PTH level is significantly elevated at 131, which should actually be low. The patient states that she has had a colonoscopy several years ago; however, her primary care is trying to get her into a colonoscopy i n the next month or so. We will start patient on stool softener, also patient does takes pain meds w hich could cause her to have constipation; however, not that significant. She does not know if she h as had any weight loss. 2. Hypercalcemia, etiology could be primary hypercalcemia. We will check a vitamin D level; however , primary hyperparathyroidism versus familial hypocalciuric hypercalcemia is also a possibility. We will check also a urine calcium and also check a vitamin D level. Patient will require to see an end ocrinologist as an outpatient. We will also start patient on IV hydration. Upon reviewing patient's chart, she has had hypercalcemia throughout her visit since 2016; however, her PTH has never been ch ecked, the only result I have is from this visit, which could definitely be causing her to have const ipation. The patient states she has also been feeling tired, fatigue, and also generalized lower ext remity weakness, which could be most likely secondary to hypercalcemia. The patient will definitely need an endocrine workup as an outpatient; however, at this time will try and manage to see if we can bring her calcium levels down with some gentle hydration. 3. Diabetes. We will continue the patient's home medications. 4. Deep venous thrombosis prophylaxis. Put the patient on subcu heparin.
[2018-02-24 04:52] LABS: #Basophils 0.1 thou/uL (0.0-0.2); #Eosinphils 0.4 thou/uL (0.0-0.7); #Lymphocytes 2.8 thou/uL (1.20-3.40); #Monocytes 0.5 thou/uL (0.11-0.59); %Basophils 0.9 % (0.0-1.0); %Lymphocytes 36.5 % (21.0-51.0); %Monocytes 5.9 % (0.0-10.0); %Neutrophils 51.7 % (42.0-75.0); Hemoglobin 12.3 g/dL (12.0-16.0); Mean Corpuscular HGB CONC 34.2 g/dL (32.0-36.0); Mean Corpuscular Hemoglobin 32.9 pg (27.0-31.0); Mean Corpuscular Volume 96.2 fl (81.0-99.0); Mean Platelet Volume 7.1 fL (7.4-10.4); Platelet Count 242 thou/uL (130-400); RBC Distribution Width 11.9 % (11.5-14.5); Red Blood Cell (RBC) Count 3.74 mill/uL (4.20-5.40); White Blood Cell (WBC) Count 7.7 thou/uL (4.8-10.8)
[2018-02-24 04:59] LABS: Anion Gap 11 mmol/L (10-20); BUN (Urea Nitrogen) 13 mg/dL (9.8-20.1); Calc. Creatinine Clearance 74 mL/min (70-130); Calcium 10.7 mg/dL (7.8-10.44); Carbon Dioxide 26 mmol/L (23-31); Chloride 108 mmol/L (98-107); Estimated GFR-MDRD 71; Glucose 101 mg/dL (80-115); Sodium 141 mmol/L (136-145)
[2018-02-24] MEDS ORDERED: Fish Oil 1,000 MG CAP PO SCH (09:00)
[2018-02-24] MEDS ORDERED: Lisinopril 5 MG TAB PO SCH (09:00)
[2018-02-24] MEDS ORDERED: DULoxetine 30 MG CAP PO SCH (09:00)
[2018-02-24] MEDS ORDERED: Docusate 100 MG CAP PO SCH (09:00)
[2018-02-24] MEDS ORDERED: Enoxaparin Sodium 40 MG/0.4 ML SYRINGE SC SCH (09:00)
[2018-02-24] MEDS ORDERED: Insulin Glargine 25 UNITS in Pre-Filled Syringe 1 EACH SC SCH (09:00)
[2018-02-24] MEDS ORDERED: DULoxetine 60 MG CAP PO SCH (09:00)
[2018-02-24] MEDS ORDERED: Aspirin 81 mg Enteric Coated Tablet PO SCH (09:00)
[2018-02-24] MEDS ORDERED: Cyanocobalamin (Vitamin B-12) 1,000 MCG TAB PO SCH (09:00)
[2018-02-24] MEDS ORDERED: Multivit, Therapeutic 1 TAB PO SCH (09:00)
[2018-02-24] MEDS ORDERED: Polyethylene Glycol 3350 17 GM Packet PO SCH (09:00)
[2018-02-24] MEDS: Gabapentin 400 MG CAP PO SCH (09:17)
[2018-02-24] MEDS: Famotidine 20 MG TAB PO SCH (09:17)
[2018-02-24 11:18] VITALS: BP 151/70; TEMP 98.9
--- NOTE | 2018-02-24 15:15 | DIS ---
DATE OF ADMISSION: 02/23/2018 DATE OF DISCHARGE: 02/24/2018 DISCHARGE DIAGNOSES: 1. Hypercalcemia, most likely secondary to parathyroid adenoma. 2. Constipation. 3. History of parathyroidectomy. 4. Diabetes. 5. Smoking cessation. No smoking history. HOSPITAL COURSE: The patient is a very pleasant 67-year-old female who lives in an assisted living w ho came into the hospital for constipation. The patient has been going to the hospital for the past couple months on and off to the ER for constipation. When the patient came into the hospital, she andino d not had a bowel movement for about 2 weeks. She was given GoLYTELY. She had successful multiple b owel movements and feels much better. She was noted to have a calcium level of 12.1. Upon reviewing her calcium over a few months, she has been noted to always have high calcium above the normal range maybe 10.5 or 11. She also has an elevated parathyroid hormone, which was 136, normal is between 19 .8-88.0. Patient states that she did have a history of partial parathyroidectomy for multiple nodule s in [place], [place]. I spoke with the patient's power of development technical lead, Sarah and notified that after flui d resuscitations, her discharge calcium level today is 10.7. We will also start her on bisphosphonat e once a week and also have recommended to see an job molder and also a primary if she may need further testing such as an ultrasound and possible biopsy for possible thyroid or parathyroid adenoma . The patient will be discharged home. She will follow up with primary and Endocrinology. I have e xplained details to the patient's POA and the patient. DISCHARGE MEDICATIONS: As followin. She is going to be on alendronate 35 daily for a month and then she will have to go to primary fo r the additional refills. 2. MiraLax 17 grams p.o. daily. 3. Senokot and Colace 1 p.o. b.i.d. 4. NovoLog 20 units t.i.d. and that is her home dose. 5. Levemir 70 b.i.d. and that is her home dose. 6. Protonix 40 mg daily. 7. Gabapentin 400 mg b.i.d. 8. Lisinopril 5 mg daily. 9. Simvastatin 40 mg q.p.m. 10. Tramadol 100 mg q.i.d. p.r.n. 11. Melatonin 9 mg at bedtime. 12. Aspirin 81 mg daily. 13. Vitamin B12 1000 mcg daily. 14. DuoNeb 4 times a day. 15. MiraLax 17 grams daily. 16. Amitriptyline 200 mg at bedtime. 17. Cymbalta 60 mg daily. 18. Multivitamin daily. PHYSICAL EXAMINATION: VITAL SIGNS: 98.9, 69, 16, 95% on room air, 151/70. GENERAL: She is awake, alert, oriented x3, does not appear in any distress. CARDIOVASCULAR: S1, S2 present. No murmurs, rubs or gallops. ABDOMEN: Soft, nontender. Bowel sounds are present x2. DISCHARGE INSTRUCTIONS: The patient has been educated on smoking cessation; however, the patient cur rently as stated that she will think about it.
== END 2018-02-24 14:03 | disposition home or self-care (01) ==
LOC: ERS 11:25 → 2SW 15:25
PROVIDERS: ADMIT Family Medicine; ATTEND Family Medicine
DX: E83.52 Hypercalcemia (principal); K59.00 Constipation, unspecified; E11.9 Type 2 diabetes mellitus without complications; I10 Essential (primary) hypertension; E78.5 Hyperlipidemia, unspecified; F32.9 Major depressive disorder, single episode, unspecified; F17.210 Nicotine dependence, cigarettes, uncomplicated; Z79.899 Other long term (current) drug therapy
CPT/HCPCS: 74018; 80048; 81003; 82306; 82340; 82962 ×2; 83735; 83970; 84100; 84439; 84480; 85025; 96360; 96361 ×2; 96372; 99284; G0378; 36415; 36416; 80053; 84443; A4216; J1650

== ENCOUNTER 2018-02-27 13:10 | Outpatient (CLI) | payer MEDICARE, MEDICAID ==
[2018-02-27 14:49] LABS: Hemoglobin 14.6 g/dL (12.0-16.0); Mean Corpuscular HGB CONC 33.8 g/dL (32.0-36.0); Mean Corpuscular Hemoglobin 32.2 pg (27.0-31.0); Mean Corpuscular Volume 95.3 fl (81.0-99.0); Mean Platelet Volume 6.7 fL (7.4-10.4); Platelet Count 323 thou/uL (130-400); RBC Distribution Width 11.8 % (11.5-14.5); Red Blood Cell (RBC) Count 4.52 mill/uL (4.20-5.40); White Blood Cell (WBC) Count 12.1 thou/uL (4.8-10.8)
[2018-02-27 14:55] LABS: PTT 26.9 SEC (22.9-36.1); Prothrombin Time 12.8 SEC (12.0-14.7)
[2018-02-27 15:23] LABS: ALT (SGPT) 30 U/L (8-55); AST (SGOT) 19 U/L (5-34); Albumin 4.8 g/dL (3.4-4.8); Alkaline Phosphatase 112 U/L (40-150); Anion Gap 14 mmol/L (10-20); BUN (Urea Nitrogen) 20 mg/dL (9.8-20.1); Bilirubin, Total 0.3 mg/dL (0.2-1.2); Calc. Creatinine Clearance 0 mL/min (70-130); Carbon Dioxide 23 mmol/L (23-31); Chloride 105 mmol/L (98-107); Estimated GFR-MDRD 55; Globulin 2.9 g/dL (2.4-3.5); Glucose 185 mg/dL (80-115); Potassium 4.7 mmol/L (3.5-5.1); Protein, Total 7.7 g/dL (6.0-8.3); Sodium 137 mmol/L (136-145)
[2018-02-27 15:30] LABS: Calcium 12.3 mg/dL (7.8-10.44)
== END 2018-02-27 13:11 | disposition home or self-care (01) ==
LOC: LABBT 13:10
PROVIDERS: ATTEND Internal Medicine Cardiovascular Disease
DX: Z01.812 Encounter for preprocedural laboratory examination (principal); R07.9 Chest pain, unspecified
CPT/HCPCS: 80053; 85027; 85610; 85730

== ENCOUNTER 2018-03-08 05:54 | Day surgery (SDC) | payer MEDICARE, MEDICAID ==
[2018-02-27 13:36] VITALS: BMI 32.4
[2018-03-08] MEDS ORDERED: Lidocaine 1% (PF) 30 ML VIAL ONE (06:38)
[2018-03-08 06:48] LABS: #Basophils 0.1 thou/uL (0.0-0.2); #Eosinphils 0.4 thou/uL (0.0-0.7); #Lymphocytes 3.1 thou/uL (1.20-3.40); #Monocytes 0.5 thou/uL (0.11-0.59); #Neutrophils 4.9 thou/uL (1.40-6.50); %Basophils 0.6 % (0.0-1.0); %Eosinophils 4.7 % (0.0-10.0); %Lymphocytes 34.8 % (21.0-51.0); %Neutrophils 53.9 % (42.0-75.0); Hemoglobin 13.6 g/dL (12.0-16.0); Mean Corpuscular HGB CONC 34.3 g/dL (32.0-36.0); Mean Corpuscular Hemoglobin 33.2 pg (27.0-31.0); Mean Platelet Volume 7.1 fL (7.4-10.4); Platelet Count 246 thou/uL (130-400); RBC Distribution Width 11.8 % (11.5-14.5)
[2018-03-08 07:06] LABS: ALT (SGPT) 17 U/L (8-55); AST (SGOT) 18 U/L (5-34); Albumin 4.4 g/dL (3.4-4.8); Alkaline Phosphatase 99 U/L (40-150); Anion Gap 13 mmol/L (10-20); BUN (Urea Nitrogen) 18 mg/dL (9.8-20.1); Bilirubin, Total 0.2 mg/dL (0.2-1.2); Calc. Creatinine Clearance 59 mL/min (70-130); Carbon Dioxide 24 mmol/L (23-31); Chloride 106 mmol/L (98-107); Estimated GFR-MDRD 55; Glucose 167 mg/dL (80-115); Potassium 4.1 mmol/L (3.5-5.1); Protein, Total 7.4 g/dL (6.0-8.3); Sodium 139 mmol/L (136-145)
[2018-03-08 08:14] LABS: Calcium 12.3 mg/dL (7.8-10.44)
[2018-03-08] MEDS ORDERED: Fentanyl 100 MCG/2 ML VIAL ONE (08:53)
[2018-03-08] MEDS ORDERED: Midazolam HCl 2 mg/2 ml Vial ONE (08:54)
[2018-03-08] MEDS ORDERED: hydrALAZINE 20 MG/ML VIAL ONE (09:02)
[2018-03-08] MEDS ORDERED: Heparin 10,000 UNITS/1 ML VIAL ONE (09:16)
[2018-03-08] MEDS ORDERED: Iopamidol 370 76% 100 ML VIAL ONE (09:34)
[2018-03-08] MEDS ORDERED: traMADol HCl 50 MG TAB ONE (10:46)
[2018-03-08] MEDS ORDERED: Acetaminophen/Codeine 30-300mg Tablet ONE ×2 (13:09→13:10)
== END 2018-03-08 14:21 | disposition home or self-care (01) ==
LOC: CCL 05:54
PROVIDERS: ATTEND Internal Medicine Cardiovascular Disease
DX: I25.10 Atherosclerotic heart disease of native coronary artery without angina pectoris (principal); G93.6 Cerebral edema; Z79.82 Long term (current) use of aspirin; Z79.52 Long term (current) use of systemic steroids; Z79.899 Other long term (current) drug therapy
CPT/HCPCS: 80053; 85025; 85347 ×2; 92928; 93005; 93458; C1725; C1769 ×2; C1876; C1887; 36415; 93010; 99152; 99153; J0360; J1644; J2001; J2250; J3010

== ENCOUNTER 2018-03-12 08:58 | Outpatient (CLI) | payer MEDICARE, MEDICAID ==
--- NOTE | 2018-03-12 11:54 | CT ---
CT SOFT TISSUE WITH AND WITHOUT CONTRAST: HISTORY: Hyperparathyroidism. COMPARISON: . TECHNIQUE: Pre- and postcontrast soft tissue neck CT performed in the axial plane. Reformatted images are submi tted for interpretation. FINDINGS: Visualized brain parenchyma is unremarkable. Adequate aeration of the sinuses and mastoid air cells. Aerodigestive tract is patent. No mucosal abnormality. Midline fatty raphae of the tongue is preser chris. No obvious masses in the oral cavity. There is no prevertebral soft tissue swelling. Degenerative changes and postsurgical changes of the cervical spine are noted. There are varying deg fede of central canal stenosis and foraminal narrowing. The greater vessels of the neck are grossly patent. Symmetric attenuation of the parotid and submand ibular glands. Symmetric attenuation of the sternocleidomastoid muscles. No evidence of lymphadenop athy by size criteria. Asymmetrically enlarged left thyroid lobe with heterogeneous attenuation suggesting multiple thyroid nodules. Minimal residual right thyroid tissue is noted. There is no CT evidence of an adenoma in t he thyroid bed. There is a hypodense lesion with enhancement on the 65 second delayed images near th e right paraesophageal groove measuring 0.7 cm. The enhancement noted on the 65 second delayed image s is atypical for a parathyroid adenoma. However, the small size limits evaluation. This lesion hadley sures 7 mm in maximum dimension. There is mass effect upon the oral cavity secondary to medial deviation of both carotid arteries. Upper mediastinum and lung apices are unremarkable and have not changed. IMPRESSION: Hypodensity in the right paraesophageal groove as detailed above. Imaging features are not typical f or a parathyroid adenoma. However, evaluation is limited by size. Further evaluation with nuclear edicine parathyroid imaging with SPECT is recommended. POS: [facility]
[2018-03-12] MEDS ORDERED: Iopamidol 370 76% 50 ML VIAL FS ONE (13:45)
[2018-03-12] MEDS ORDERED: Iopamidol 370 76% 100 ML VIAL ONE (13:45)
== END 2018-03-12 08:59 | disposition home or self-care (01) ==
LOC: CT 08:58
PROVIDERS: ATTEND Family Medicine
DX: E21.3 Hyperparathyroidism, unspecified (principal)
CPT/HCPCS: 70492; 82565

== ENCOUNTER 2018-04-09 11:44 | Observation (INO) | payer MEDICARE, MEDICAID ==
[2018-04-09] MEDS ORDERED: ISOVUE-370 76%-LOCM 1 ML ONE (11:56)
[2018-04-09 12:43] LABS: #Eosinphils 0.2 thou/uL (0.0-0.7); #Lymphocytes 2.1 thou/uL (1.20-3.40); #Monocytes 0.6 thou/uL (0.11-0.59); #Neutrophils 6.3 thou/uL (1.40-6.50); %Basophils 0.2 % (0.0-1.0); %Eosinophils 2.5 % (0.0-10.0); %Lymphocytes 22.3 % (21.0-51.0); %Monocytes 6.2 % (0.0-10.0); %Neutrophils 68.8 % (42.0-75.0); Hemoglobin 15.2 g/dL (12.0-16.0); Mean Corpuscular HGB CONC 35.5 g/dL (32.0-36.0); Mean Corpuscular Hemoglobin 33.5 pg (27.0-31.0); Mean Corpuscular Volume 94.4 fL (78.0-98.0); Mean Platelet Volume 6.7 fL (7.4-10.4); Platelet Count 244 thou/uL (130-400); RBC Distribution Width 12.7 % (11.5-14.5); Red Blood Cell (RBC) Count 4.52 mill/uL (4.20-5.40); White Blood Cell (WBC) Count 9.2 thou/uL (4.8-10.8)
[2018-04-09 13:05] LABS: ALT (SGPT) 20 U/L (8-55); AST (SGOT) 20 U/L (5-34); Albumin 4.9 g/dL (3.4-4.8); Alkaline Phosphatase 97 U/L (40-150); Anion Gap 16 mmol/L (10-20); BUN (Urea Nitrogen) 15 mg/dL (9.8-20.1); Bilirubin, Total 0.3 mg/dL (0.2-1.2); CK (CPK) 61 U/L (29-168); Calc. Creatinine Clearance 0 mL/min (70-130); Calcium 11.8 mg/dL (7.8-10.44); Carbon Dioxide 21 mmol/L (23-31); Chloride 107 mmol/L (98-107); Estimated GFR-MDRD 58; Globulin 3.3 g/dL (2.4-3.5); Glucose 272 mg/dL (80-115); Potassium 4.6 mmol/L (3.5-5.1); Protein, Total 8.2 g/dL (6.0-8.3); Sodium 139 mmol/L (136-145)
[2018-04-09 13:06] LABS: Acetaminophen Less than 6.0 mcg/mL (10.0-30.0); Alcohol Less than 10 mg/dL (Less than 10); Salicylate Less than 8.0 mg/dL (15.0-30.0)
[2018-04-09 13:11] LABS: Troponin I 0.013 ng/mL (< 0.028)
[2018-04-09 13:30] LABS: Bilirubin Negative (Negative); Blood, Urine Negative (Negative); Clarity CLEAR (Clear); Glucose, Urine (Dipstick) 250 mg/dL (Negative); Leukocyte Negative (Negative); Nitrite Negative (Negative); Protein, Urine (Dipstick) 30 mg/dL (Neg-Trace); Specific Gravity, Urine 1.018 (1.002-1.036); Urobilinogen 0.2 mg/dL (0.2-1.0)
--- NOTE | 2018-04-09 13:31 | CT ---
CT CERVICAL SPINE PERFORMED WITHOUT CONTRAST ENHANCEMENT: HISTORY: Dementia. Trauma. Neck pain. FINDINGS: The bones are demineralized. There is a reversal to the normal cervical curve. There is bony fusion across the C4-C5 level and anterior fusion changes at C6-C7. There is degenerative disk narrowing b elow the level of the fusion. There is left-sided foraminal stenosis, related to asymmetric left unc overtebral changes at C3-C4. There is no central canal stenosis noted. There is no CT evidence for a fracture. IMPRESSION: No CT evidence of fracture of the cervical spine. POS: [facility]
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
[2018-04-09 13:33] LABS: Bacteria/HPF None Seen HPF (None Seen); Hyaline Casts/LPF 0-3 HYALINE CAST LPF (0-3 Hyaline); RBC/HPF None Seen HPF (0-3); Squamous Epithelial None Seen HPF (0-3); WBC/HPF None Seen HPF (0-3)
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
[2018-04-09 13:48] LABS: Medtox Reader # READER 4; Tricyclic Screen Detected (NotDetected)
[2018-04-09 13:49] LABS: Amphetamine Not Detected (NotDetected); Barbiturates Screen Not Detected (NotDetected); Benzodiazepine Screen Not Detected (NotDetected); Cocaine Metabolite Screen Not Detected (NotDetected); Medtox Control Line Valid? VALID (VALID); Methadone Not Detected (NotDetected); Methamphetamine Not Detected (NotDetected); Opiate Screen Not Detected (NotDetected); Oxycodone Screen Not Detected (NotDetected); Phencyclidine (PCP) Not Detected (NotDetected); THC/Cannabinoid Screen Not Detected (NotDetected)
[2018-04-09 17:26] LABS: Lactic Acid 1.3 mmol/L (0.5-2.2)
[2018-04-09] MEDS ORDERED: traMADol HCl 50 MG TAB ONE (20:41)
[2018-04-09] MEDS ORDERED: Sodium Chloride 0.9% 1,000 ML IV SCH (23:30)
--- NOTE | 2018-04-09 23:57 | PDOC.EVN ---
Event Note - Event Note Event Note: h&p dictated [id number]
[2018-04-10 01:44] VITALS: BMI 32.6
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
[2018-04-10 05:35] LABS: #Basophils 0.1 thou/uL (0.0-0.2); #Eosinphils 0.4 thou/uL (0.0-0.7); #Lymphocytes 2.8 thou/uL (1.20-3.40); #Monocytes 0.5 thou/uL (0.11-0.59); %Eosinophils 4.8 % (0.0-10.0); %Lymphocytes 36.6 % (21.0-51.0); %Monocytes 6.7 % (0.0-10.0); %Neutrophils 50.9 % (42.0-75.0); Hemoglobin 12.9 g/dL (12.0-16.0); Mean Corpuscular HGB CONC 35.5 g/dL (32.0-36.0); Mean Corpuscular Hemoglobin 33.7 pg (27.0-31.0); Mean Platelet Volume 6.7 fL (7.4-10.4); Platelet Count 235 thou/uL (130-400); RBC Distribution Width 12.6 % (11.5-14.5); Red Blood Cell (RBC) Count 3.81 mill/uL (4.20-5.40); White Blood Cell (WBC) Count 7.8 thou/uL (4.8-10.8)
[2018-04-10 05:53] LABS: Anion Gap 11 mmol/L (10-20); BUN (Urea Nitrogen) 15 mg/dL (9.8-20.1); Calc. Creatinine Clearance 74 mL/min (70-130); Calcium 11.2 mg/dL (7.8-10.44); Carbon Dioxide 23 mmol/L (23-31); Chloride 107 mmol/L (98-107); Estimated GFR-MDRD 71; Glucose 200 mg/dL (80-115); Sodium 137 mmol/L (136-145)
[2018-04-10] MEDS ORDERED: Lidocaine 5% Patch TD SCH (09:00)
[2018-04-10] MEDS ORDERED: Heparin 5,000 UNITS/ML VIAL SC SCH (09:00)
[2018-04-10 12:18] VITALS: TEMP 98.7
--- NOTE | 2018-04-10 13:16 | DIS ---
PRIMARYCARE PROVIDER: Sintia Espinosa MD DATE OF ADMISSION: 04/09/2018 DATE OF DISCHARGE: 04/10/2018 DISCHARGE DIAGNOSES: 1. Acute encephalopathy. 2. Hypercalcemia. CONDITION OF PATIENT ON THE DAY OF DISCHARGE: Stable. I says Ms. Reyna on the day of discharge. She denies any chest pain or shortness of breath. Vital signs are stable. S1 and S2 are heard, reg ular. Lungs are clear to auscultation bilaterally. DISCHARGE MEDICATIONS: Melatonin and tramadol were discontinued. She has been started on lidocaine patch, 5% patch daily. Otherwise, no change was made to her home medications as dictated on history and physical note by Dr. Emma Davis on 04/09/2018. HOSPITAL COURSE: Ms. Reyna is a pleasant 67-year-old lady, who was admitted to [facility] for an episode of acute encephalopathy. She was found standing in a [place] for severa l hours. She was admitted to the hospital for further observation. She improved. By 04/10/2018, she was oriented x3. She was living in assisted living prior to this hospitalization. She is being discharged to [facility] as an inpatient. Many thanks for allowing me to participate in your patient's care. Please feel free to contact me wi th any questions or concerns. DISCHARGE DESTINATION: [facility].
[2018-04-10 13:37] VITALS: BP 149/78
[2018-04-10] MEDS ORDERED: Lidocaine Patch Removal 1 EACH TOP SCH (21:00)
[2018-04-11 09:18] LABS: Ionized Calcium 6.2 mg/dL (4.5-5.6)
== END 2018-04-10 16:00 ==
LOC: ERS 11:44 → ERHOLD 15:19 → 2NO 04-10 00:45
PROVIDERS: ADMIT Internal Medicine; ATTEND Internal Medicine
DX: G93.40 Encephalopathy, unspecified (principal); E83.52 Hypercalcemia; I10 Essential (primary) hypertension; E78.5 Hyperlipidemia, unspecified; J44.9 Chronic obstructive pulmonary disease, unspecified; E21.3 Hyperparathyroidism, unspecified; Z79.4 Long term (current) use of insulin; Z79.82 Long term (current) use of aspirin; Z79.899 Other long term (current) drug therapy
CPT/HCPCS: 51701; 70450; 71260; 72125; 74177; 80048; 80053; 80307; 82330; 82550; 82553; 82962 ×2; 83605 ×2; 84484; 85025 ×2; 93005; 96360; 96361 ×2; 97116; 97139; 99285; G0378 ×2; G8978; G8979; 36415; 36416; 80306; 81003; 81015; A4216; A4353; J1644

== ENCOUNTER 2018-07-16 09:13 | Day surgery (SDC) | payer MEDICARE, MEDICAID ==
[2018-07-13 14:23] VITALS: BMI 34.6
--- NOTE | 2018-07-16 10:49 | OP ---
DATE OF PROCEDURE: 07/16/2018 PROCEDURE: Colonoscopy with biopsy. PREOPERATIVE DIAGNOSES: Change in bowel habits and constipation and history of adenomatous colon polyps. PROCEDURE IN DETAIL: Informed consent was obtained from the patient. She was sedated with total intravenous anesthesia. The rectal exam was performed and was normal. The preparation quality was good. The colonoscope was advanced without difficulty to the terminal ileum. The mucosa of the terminal ileum was normal. The appendiceal orifice and ileocecal valve were clearly identified. A 3 mm polyp was removed from the cecum by cold biopsy forceps. A 3 mm polyp was removed from the descending colon by cold biopsy forceps. There was mild to moderate diverticulosis in the sigmoid colon. The remainder of the colonic mucosa was normal throughout. Retroflexed views in the rectum were normal. IMPRESSION: 1. A 3 mm cecal polyp. 2. A 3 mm descending colon polyp. 3. Sigmoid diverticulosis. 4. Otherwise normal colonoscopy to the terminal ileum. 5. Constipation. The nursing staff reports that she is having more regular bowel movements on her current laxative regimen; however, the patient reports a bowel movement once every 3 weeks. The patient's dementia seems to be playing a significant role in obtaining an accurate history regarding this. RECOMMENDATIONS: 1. Continue the current laxative regimen. 2. Keep a log of bowel movements and follow up in the office in 6 weeks. 3. Repeat colonoscopy in 5 years if clinically appropriate at that time. JONG
[2018-07-16 11:27] LABS: ALT (SGPT) 19 U/L (8-55); AST (SGOT) 19 U/L (5-34); Albumin 3.9 g/dL (3.4-4.8); Alkaline Phosphatase 96 U/L (40-150); Anion Gap 14 mmol/L (10-20); BUN (Urea Nitrogen) 13 mg/dL (9.8-20.1); Bilirubin, Total 0.2 mg/dL (0.2-1.2); Calc. Creatinine Clearance 54 mL/min (70-130); Calcium 8.3 mg/dL (7.8-10.44); Carbon Dioxide 26 mmol/L (23-31); Chloride 103 mmol/L (98-107); Estimated GFR-MDRD 47; Globulin 2.7 g/dL (2.4-3.5); Glucose 235 mg/dL (80-115); Potassium 4.1 mmol/L (3.5-5.1); Protein, Total 6.6 g/dL (6.0-8.3); Sodium 139 mmol/L (136-145)
[2018-07-16] MEDS ORDERED: PROPOFOL 200 MG/20 ML VIAL ONE (15:21)
[2018-07-16] MEDS ORDERED: Lidocaine 1% PF 5 ML VIAL ONE (15:21)
[2018-07-16] MEDS ORDERED: PHENYLEPHRINE-NS 100 MCG/ML 10 ML SYRINGE ONE (15:21)
[2018-07-17 08:19] LABS: Ionized Calcium 4.3 mg/dL (4.5-5.6)
== END 2018-07-16 11:30 | disposition home or self-care (01) ==
LOC: SDC 09:13
PROVIDERS: ATTEND Internal Medicine Gastroenterology
PROC: 0DBH8ZX Excision of Cecum, Via Natural or Artificial Opening Endoscopic, Diagnostic (ICD-10-PCS; principal; 2018-07-16)
PROC: 0DBM8ZX Excision of Descending Colon, Via Natural or Artificial Opening Endoscopic, Diagnostic (ICD-10-PCS; 2018-07-16)
DX: D12.0 Benign neoplasm of cecum (principal); D12.4 Benign neoplasm of descending colon; K59.00 Constipation, unspecified; K57.30 Diverticulosis of large intestine without perforation or abscess without bleeding; F03.90 Unspecified dementia, unspecified severity, without behavioral disturbance, psychotic disturbance, mood disturbance, and anxiety; I10 Essential (primary) hypertension; E11.9 Type 2 diabetes mellitus without complications; E78.5 Hyperlipidemia, unspecified; J44.9 Chronic obstructive pulmonary disease, unspecified; Z86.010 Personal history of colon polyps; Z79.02 Long term (current) use of antithrombotics/antiplatelets; Z79.4 Long term (current) use of insulin; Z79.899 Other long term (current) drug therapy
CPT/HCPCS: 36415; 36416; 80053; 82330; 88305; J2001; J2704